=== PATIENT | female | born 1965 | race Caucasian/White ===

== ENCOUNTER 2025-03-24 16:29 | Emergency (ER) | payer MEDICAID ==
[~2025-03-24] VITALS: Ht 175.3 cm; Wt 115.0 kg
[~2025-03-24 16:29] MED LIST: PANT-47 PO
[2025-03-24 16:40] VITALS: TEMP 98.1
--- NOTE | 2025-03-24 16:41 | ELECTROCARDIOGRAPH REPORT ---
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
[2025-03-24 16:47] LABS: MEAN PLATELET VOLUME 7.0 FL (7.4-10.4); RED CELL DISTRIBUTION WIDTH 13.5 % (11.5-14.5)
[2025-03-24 16:56] LABS: CREATININE 0.82 MG/DL (0.40-0.90); TOTAL CARBON DIOXIDE 27.4 MMOL/L (24-32); eCRCL 79 ML/MIN; eGFR 72 ML/MIN
[2025-03-24 16:59] LABS: APTT 32 SECONDS (22-32); INR 1.0 INR
--- NOTE | 2025-03-24 17:04 | RADIOLOGY REPORT ---
EXAM: CT CT STROKE ALERT INDICATION: Stroke Alert TECHNIQUE: CT images of the head were obtained without administration of IV contrast. CT scans at [facility] facility use dose modulation, iterative reconstruction, and/or weight based dosing when appropriate to reduce radiation dose to as low as reasonably achievable. COMPARISON: None FINDINGS: PARENCHYMA: No acute hemorrhage. There is no mass effect, midline shift, or herniation. There is pres ervation of the nicholson white differentiation. VENTRICLES: No hydrocephalus. EXTRA-AXIAL SPACES: No extra-axial fluid collections. OTHER: The bony structures are intact. Mild scattered paranasal sinus mucosal thickening. IMPRESSION: 1. No CT evidence of an acute intracranial abnormality. Critical Findings: Stroke Alert Findings discussed with SEPIDEH TATE at 03/24/2025 7:02 PM ELECTROLYSIS ENGINEER, who acknowledged receipt and unde rstanding of the findings.
--- NOTE | 2025-03-24 17:17 | Physician Documentation ---
History of Present Illness ~ Chief Complaint: Stroke Alert Stated Complaint: FACIAL DROOPING NUMBNESS Time Seen by MD: 16:42 Source: patient Exam Limitations: no limitations HPI Patient who came in for further evaluation of facial droop on the right side and pain in her right cheek. This started 2 days ago. She went to urgent care and she told them she had dental work 4 months ago and so they told her to go back to her dentist. She went to her dentist and they said it was not a dental abscess and to go to her PCP. Her PCP told her to come here for evaluation of stroke. When it 1st started she had slurred speech. She states that this slurred speech did not seem to be due to the fact that her right cheek was a little bit swollen. She felt it was from something different. Today that is resolved. She however has some slight deficit in her right arm and her right leg they feel a little weaker and the sensation is decreased. She also states the sensation on her right face was decreased but there is a lump in there and at the same time it hurts. No difficulty closing her eyes. Smokes half pack per day. She has been trying to quit. She has smoked most of her life. She takes 3 blood pressure medications and a statin. The urgent care started her on clindamycin and she has done 3 doses so far. Medication Reconciliation Allergies: Coded Allergies: No Known Allergies (Unverified , 12/29/15) Scheduled Amlodipine Besylate (Amlodipine Besylate), 1 TAB PO DAILY, (Reported) Aspirin (Aspirin), 1 TAB PO DAILY, (Reported) Hydrochlorothiazide (Hydrochlorothiazide), 1 TAB PO DAILY, (Reported) Metoprolol Succinate (Metoprolol Succinate), 1 TAB PO DAILY, (Reported) Thyroid (Thyroid, [place]), 1 TAB PO DAILY, (Reported) Miscellaneous Medications Clindamycin HCl (Clindamycin HCl), (Reported) Tirzepatide (Zepbound), (Reported) Discontinued Medications Pantoprazole Sodium (PROTONIX tablet), 1 TAB PO DAILY Discontinued Reason: patient no longer taking Past Medical History Past Medical History: Hypertension, *PSYCH*, Anxiety, Panic Disorder Past Surgical History: noncontributory Other Past Family History: father and mother: cardiac disease; father: [place] in 70s Review of Systems All Other Systems at this time: Reviewed and Negative Physical Exam Vital Signs: Temperature: 98.1, Source: Temporal, Heart Rate: 72, Respiratory Rate: 16, BP: 147/72, Pulse Oximetry: 98, Weight: 115.000 Oxygen Flow Rate: 0 General Appearance: alert, WD/WN Pupils/EOM/Fundus: PERRLA EENT Very trace area of swelling in the mid right cheek but difficult to appreciate, no erythema, mild tenderness along the right upper gumline but no obvious dental abscess Neck: normal inspection, full range of motion Respiratory: lungs clear, no respiratory distress Chest: no accessory muscle use Cardiovascular: regular rate, rhythm Extremities: normal inspection Orientation / Memory / CN Exam: oriented x3, memory intact Motor / Sensory: other (Right facial droop, slight right arm weakness, slight deficit on the right in sensation) Psychiatric: appropriate Skin: warm/dry, normal color Progress Results/Orders Results/Orders Orders - SEPIDEH TATE MD Monitor (03/24/25 16:39) 2 Large Bore Ivs (03/24/25 16:39) Chest,Single View (03/24/25 16:39) Accucheck (03/24/25 16:39) Ct Stroke Alert (03/24/25 16:39) [place] Prov.Neuro Consult (03/24/25 16:39) Page Hospitalist (03/24/25 17:06) Fill Out Med Reconciliation (03/24/25 17:06) Page Hospitalist (03/24/25 17:06) Fill Out Med Reconciliation (03/24/25 17:06) Aspirin 325mg Enteric-Coated (Ecotrin 32 (03/24/25 18:05) Completed Orders - SEPIDEH TATE MD Cbc/Diff (03/24/25 16:39) Electrocardiogram (03/24/25 16:39) Chest,Single View (03/24/25 16:39) Ct Stroke Alert (03/24/25 16:39) BMP (03/24/25 16:39) PTT (03/24/25 16:39) Pt Inr (03/24/25 16:39) Vital Signs 03/24/25 03/24/25 03/24/25 03/24/25 16:40 17:00 17:12 17:13 Temp 98.1 Pulse 73 72 73 Resp 16 16 12 16 B/P (MAP) 154/92 147/72 124/70 (88) Pulse Ox 94 98 98 O2 Flow Rate 0 0 03/24/25 17:15 Pulse 71 Resp 16 B/P (MAP) 124/70 Pulse Ox 97 Laboratory Tests Test 03/24/25 16:36 03/24/25 16:37 Glucometer 92 White Blood Count 8.2 Red Blood Count 4.59 Hemoglobin 14.9 Hematocrit 43.1 Mean Corpuscular Volume 93.8 Mean Corpuscular Hemoglobin 32.5 H Mean Corpuscular Hemoglobin Concent 34.6 Red Cell Distribution Width 13.5 Platelet Count 394 Mean Platelet Volume 7.0 L Neutrophils (%) (Auto) 54.4 Lymphocytes (%) (Auto) 35.1 Monocytes (%) (Auto) 8.2 Eosinophils (%) (Auto) 1.3 Basophils (%) (Auto) 1.0 Neutrophils # (Auto) 4.4 Lymphocytes # (Auto) 2.9 Monocytes # (Auto) 0.7 Eosinophils # (Auto) 0.1 Basophils # (Auto) 0.1 CBC Comment Prothrombin Time 10.2 INR International Normalized Ratio 1.0 Activated Partial Thromboplast Time 32 Coagulation Comments Sodium Level 138 Potassium Level 3.3 L Chloride Level 100 Carbon Dioxide Level 27.4 Anion Gap 11 Blood Urea Nitrogen 10 Creatinine 0.82 Estimated GFR/1.73 m2 72 BUN/Creatinine Ratio 12.2 Glucose Level 92 Calcium Level 9.1 Albumin 3.9 Chemistry Comments Medical Decision Making Additional Information Patient in with symptoms concerning for stroke but also can not rule out infection in that right cheek or dental abscess. Currently on clinda. Head CT negative. Labs unremarkable. Tele neuro consulted. Tele neuro spoke with her briefly and felt that it was something going on in the cheek and not a stroke. I did speak with the patient a 2nd time after that very thoroughly and she did again say that she felt like her slurred speech was not a secondary to her slightly swollen cheek. She also feels some decreased sensation slightly on the right side. She is on clinda already if there is any possible infection in her cheek. I did recommend admission for further workup of stroke including MRI. Patient's mother is at home and had surgery today and is immobile and they live [place] and they have animals that need tending to. I expressed her if she did have a stroke that she could have a 2nd stroke and worsen. Patient understood this but ultimately decided that she would not be able to stay in the hospital for further testing. Gave 324 of aspirin in the hospital and recommended 81 daily. She already takes 162 and I told her that 81 would be fine. I did however tell her that normally a patient if they have had a stroke would be on Plavix for 21 days and we would not be able to do that without an MRI. She is to continue her clinda. Recommending that on Thursday she call her doctor's office and see if they will order an MRI of the brain. Discharging home against medical advice. She is to return here if new or worsening symptoms prior to follow up. Departure Impression: Primary Impression: Facial droop Condition: Stable Additional Instructions: Take 1 baby aspirin every day. Follow up with your doctor on Thursday and ask her to order an MRI of the brain without contrast. This will evaluate whether or not you have had a stroke. Continue your antibiotics. If you worsen return to the emergency room. Referrals: NO PRIMARY CARE PROVIDER (PCP) Education Educated: Patient Educated regarding: diagnosis, treatment, prognosis, need for follow up Signature Scribe Signature: No scribe used Attestation: No scribe used SEPIDEH TATE MD Mar 24, 2025 17:17
--- NOTE | 2025-03-24 17:22 | RADIOLOGY REPORT ---
CHEST RADIOGRAPH REASON FOR EXAM: Stroke Alert COMPARISON: None TECHNIQUE: One view of the chest is provided FINDINGS: The cardiomediastinal silhouette is within normal limits for technique. There is no focal a irspace disease. There is no significant pleural effusion. No acute bony abnormality is identified. IMPRESSION: No radiographic evidence of acute cardiopulmonary process.
[2025-03-24] MEDS ORDERED: TIRZ5PEN3 (17:28)
[2025-03-24] MEDS ORDERED: HYDR25TA4 PO (17:28)
[2025-03-24] MEDS ORDERED: THYR30TA2 PO (17:28)
[2025-03-24] MEDS ORDERED: METO-411 PO (17:28)
[2025-03-24] MEDS ORDERED: AMLO10TA13 PO (17:28)
[2025-03-24] MEDS ORDERED: CLIN300C56 (17:32)
[2025-03-24] MEDS ORDERED: ASPI-1265 PO (17:32)
[2025-03-24] MEDS: aspirin 325mg tablet, delayed-release (Ecotrin) PO ONE (18:11)
[2025-03-24 18:17] VITALS: BP 108/71; PULSE 63; RESP 16; O2SAT 98
--- NOTE | 2025-03-24 18:20 | PROGRESS NOTE- Residence ---
Progress Note - Resident Providers to CC Resident Creating Document: KARON GARY, RES CC: SHELBY ESCALANTE MD ~ Antibiotic Timeout Antibiotic Ordered?: No Subjective ED called in for admission for this patient. We placed holding admit orders in view of the hand over received from the ED physician. I was at bedside trying to assess the patient when she denied admission. Patient was explained explicitly about the possible complications associated with leaving AMA but she had acknowledged and decided to leave the hospital. Care has been transitioned to the ED, holding admit orders has been canceled, management has not been taken over by the hospitalist team. Objective Vital Signs Date Time Temp Pulse Resp B/P (MAP) Pulse Ox O2 Delivery O2 Flow Rate FiO2 03/24/25 17:15 71 16 124/70 97 03/24/25 17:12 0 03/24/25 16:40 98.1 Result Diagram: 03/24/25 1637 03/24/25 1637 Coagulation Studies Laboratory Tests Test 03/24/25 16:37 Prothrombin Time 10.2 SECONDS (9.0-12.0) INR International Normalized Ratio 1.0 INR Activated Partial Thromboplast Time 32 SECONDS (22-32) Coagulation Comments Date of Service: Mar 24, 2025 Billing Provider: SHELBY ESCALANTE MD, SIVA, GINA Mar 24, 2025 18:20
--- NOTE | 2025-03-24 19:09 | [facility] CONSULT REPORT ---
[facility] Procedure Note [facility] Procedure Note Consult [facility] Note # Demographics Consult Type: General Neurology Patient Location: Emergency Room First Name: LARISSA Last Name: JUVENTINO Date of : 1965 Age: 59 Gender: Female Facility: [facility] Time of Initial Page (): 03/24/2025 16:56 First Contact with Site ( Time): 03/24/2025 16:57 # HPI History: 59 y/o F presents with Rt cheek swelling, pain and facial droop with onset 2 days ago. She went to see her dentist and everything checked out okay. # Exam Time of Exam (): 03/24/2025 17:15 Mental Status: - awake - alert and oriented x 3 - follows commands Language: - normal speech Cranial Nerves: - right facial droop Motor: - no drift Sensory: - normal sensation Cerebellar: - normal cerebellar exam # Assessment Impression: - Other Rt facial droop in the setting of Rt cheek swelling and pain. # Plan Labs: - CBC - comprehensive metabolic panel Imaging: (urgency: routine): - MRI Brain without contrast consider CT scan of sinuses Other: - If patient has any neurological deterioration please call me back immediately # Logistics Attestation of consult completion: The patient is located at: [facility]. Facility staff participated in the visit. I performed this telemedicine visit from my offsite office utilizing interactive 2 way audio and visual telecommunication technology at the request of the onsite emergency room provider. Total time spent in telemedicine encounter: I spent 30 minutes reviewing clinical data and/or imaging, obtaining history, examining the patient, communicating with the onsite care team, and in preparation of this report. # Demographics First Name: LARISSA Last Name: JUVENTINO Facility: [facility] Electronically signed at 03/24/2025 19:08 () by Ariana Page DO Neuro Consult Order placed for: GISELL Bañuelos DO Mar 24, 2025 19:09
== END 2025-03-24 18:19 | disposition left against medical advice (07) ==
LOC: ER 16:30
DX: R29.810 Facial weakness (principal); I10 Essential (primary) hypertension; F17.210 Nicotine dependence, cigarettes, uncomplicated; F41.9 Anxiety disorder, unspecified; F41.0 Panic disorder [episodic paroxysmal anxiety]; Z79.899 Other long term (current) drug therapy; Z79.82 Long term (current) use of aspirin
CPT/HCPCS: 36415; 70450; 71045; 80048; 82948; 85025; 85610; 85730; 93005; 99285